=== PATIENT | male | born 1965 | race Caucasian/White ===

== ENCOUNTER 2022-10-17 15:00 | Outpatient (RCR) | payer BC, SELFPAY | END 2022-11-06 07:30 | disposition home or self-care (01) | LOC: PT 15:00 | PROVIDERS: Visit Provider Orthopaedic Surgery | DX: M17.12 Unilateral primary osteoarthritis, left knee (principal); R26.9 Unspecified abnormalities of gait and mobility; Z96.652 Presence of left artificial knee joint | CPT/HCPCS: 97010; 97014; 97110; 97140; 97163; 97164; 97530; G0283 ==

== ENCOUNTER 2023-07-03 15:00 | Outpatient (RCR) | payer BC, SELFPAY ==
--- NOTE | 2023-06-04 09:17 | HMH.PTOPEV ---
PT Outpatient Evaluation Rehab PT Outpatient Evaluation Start: 06/04/23 08:11 Freq: Status: Active Protocol: Document 06/04/23 08:11 PDESEROUX (Rec: 06/04/23 09:16 [email or web address] [id number]) E-signed By Shaun Thomas, PT Outpatient Therapy Subjective History Subjective History Pt. is a 57 year old male who presents to [facility] Outpatient Physical Therapy Services in [place] for the initial evaluation this date(06/04/23) w/ c/o constant and acute RLE knee post-surgical P!, edema, and numbness S/P RLE TKA on 05/29/23. Pt. vocalizes increased numbness to anterior and lateral portion of RLE knee post-surgery. Pt. reports having a knot-like sensation over lateral distal portion of thigh post-surgery. Pt. reports P! and symptoms w / improve some w/ ambulation , resting, and icing. Pt. reports icing and elevation RLE knee several times throughout the day for about an hour. Pt. reports symptoms worsen w/ prolonged sitting. Pt. vocalizes contacting Surgeon's office today() on return date. Current medications include Oxycodone, Lisinopril, Aspirin. PMH includes Hypertension, Hyperlipidemia, S/P LLE TKA. New diagnosis of cancer in past 12 No months? Chief Complaint Pain,Stiff,Swelling,Gives out/ Unstable,Paresthesia,Weakness Symptom Type Ache,Sharp,Dull,Burning, Numbness,Shooting Symptoms Relieved By Rest/Positioning,Ice, Prescription Meds,Activity, Elevation Symptoms Aggravated By Sitting,Standing,Bending/ Stooping,Physical Activity, Twisting,Walking Prior Functional Limitations None Current Functional Limitations Housework,Dressing,Standing, Sitting,Squatting,Recreation Activity,Walking,Bending/ Stooping Symptom Description Constant and Continuous, Activity Dependent Level of pain today (0-10) 8 Pain scale - at its best (0-10) 4 Pain scale - at its worst (0-10) 9 Hip/Knee Eval Gait Observation General Gait Pattern Observation Antalgic Gait,Wide Based Gait, Decrease Weight Bear (R), Decrease Stride Lngth (L) Assistive Device Assistive Devices Rolling / Wheeled Walker Palpation Tenderness right Knee Palpation Finding Tenderness,Spasm Knee Palpation Overall Comment grade 4 +TTP medial/lateral jt . line, IT band, distal quadriceps, patella MMT Hip Flexion Strength Grade 3 Fair Hip Abduction Strength Grade 3+ Fair+ Hip Adduction Strength Grade 3+ Fair+ Hip Extension Strength Grade 4- Good- Gluteus Robert Strength Grade 4- Good- Hip External Rotation Strength Grade 3+ Fair+ Hip Internal Rotation Strength Grade 3+ Fair+ Knee Extension Strength Grade 3+ Fair+ Knee Flexion Strength Grade 3+ Fair+ Knee Extensors Muscle Tone Description Severe Hypertonicity Knee Flexors Muscle Tone Description Severe Hypertonicity Hip Extensors Muscle Tone Description Severe Hypertonicity Hip Flexors Muscle Tone Description Severe Hypertonicity ROM Knee Extension Active Range of Motion ( +18 degrees) Knee Extension Passive Range of Motion ( +15 degrees) Knee Flexion Active Range of Motion ( 90 degrees) Knee Flexion Passive Range of Motion ( 93 degrees) Knee ROM Limitations Soft Tissue Tightness,Muscle Weakness,Muscle Tone,Pain Effusion joint effusion knee exam standard right 5cm Proximal Circumference Measure (cm) 57 5cm Distal Circumference Measure (cm) 44 Outpatient Therapy Assessment Impairments Problems/Impairmments Palpation Tenderness,Impaired Range of Motion,Impaired Strength,Impaired Endurance, Impaired Transfers,Impaired Gait Pattern,Impaired Walking, Impaired Standing,Impaired Dressing,Impaired Household Care,Impaired Incline Stepping ,Impaired Stepping on Uneven Surface,Impaired Squatting, Impaired Bending,Increased Edema,Subjective C/O Pain, Impaired Self Care/Self Management Prognosis Rehab Potential Good Comment w/ HEP compliancy Clinical Impression Consistent with Diagnosis Yes Consistent with S/P RLE TKA Short Term Goals Number of Weeks 2 Decreased Palpation Tenderness Yes: grade 1-2 +TTP to TTP assessment above Decrease Subjective C/O Pain Yes: worse:11/15 Patient to be Ind w/ HEP Yes Usp Goals Number of Weeks 4-6 Decreased Palpation Tenderness Yes: grade 1 +TTP to TTP assessment above Increase Range of Motion Yes: 0-120 Increase Strength Yes: 4+ to 5/5 RLE knee/hip MMT scores grossly Improve Gait Pattern without Assistive Yes Device Increase Ability to Walk Yes Increase Ability to Stand Yes Increase Ability to Drive/Ride in Car Yes: Pt. will be able to ride/ drive in the car w/o difficulty Improve Ability to Dress Self Yes: Pt. will be able to don/ doff socks and shoes w/o difficulty Improve Ability For Household Care Yes Improve LEFI Score Yes Decrease Subjective C/O Pain Yes: worse:1-08/18 Improve Self Care/Self Management Yes Patient to be Ind w/ Advanced HEP Yes Outpatient Therapy Plan of Care Treatment Plan May Include Therapeutic Exercise Including Home Yes Exercise Program Manual Therapy Techniques Yes Neuromuscular Re-education Yes Therapeutic Activities to Return to Yes Previous Functional/Work Level Gait Training Yes ADL/Self Care Education Yes Thermal Modalities Yes Electrical Stimulation Yes Ultrasound/Phonophoresis Yes Iontophoresis Yes Vasopneumatic Compression Pump Yes Massage Yes Eval/Re-Eval Yes Frequency Times per week 2 Duration Number of Weeks 4-6 Addendums This patient is a candidate for social No or vocational rehab? Patient/Guardian verbally acknowledges Yes understanding of treatment program and consents to further treatment? Patient/Guardian verbally acknowledges Yes understanding of diagnosis, prognosis and goals for treatment? Eval Complexity PT Charges 13567 - Low Complexity Shoulder/Elbow Eval Shoulder Objective Measurements Elbow Objective Measurements PHYSICIAN CERTIFICATION: I certify the specified therapy services for Tadeo Mayra Huong are required, authorized, and reviewed every 30 days.
== END 2023-08-14 17:50 | disposition home or self-care (01) ==
LOC: PT 15:00
PROVIDERS: Visit Provider Orthopaedic Surgery
DX: M17.11 Unilateral primary osteoarthritis, right knee (principal); Z96.651 Presence of right artificial knee joint
CPT/HCPCS: 97010; 97014; 97110; 97140; 97163; 97164; 97530; G0283

== ENCOUNTER 2023-07-27 08:38 | Outpatient (CLI) | payer BC, SELFPAY ==
--- NOTE | 2023-07-27 08:41 | XR_ITS ---
FINAL REPORT CLINICAL HISTORY: right knee pain FINDINGS: Right knee Three views were obtained. There is no acute fracture or dislocation. Patient is status post right knee arthroplasty. Moderate joint effusion is identified. There is soft tissue swelling. IMPRESSION: Moderate joint effusion with soft tissue swelling. Reviewed, Interpreted and Dictated by Justin Wagoner III, MD Transcribed by Tianna Reynoso Authenticated and [facility]
== END 2023-07-27 23:59 ==
LOC: RAD 08:39
PROVIDERS: PCP Family Medicine; Visit Provider Orthopaedic Surgery
DX: M25.561 Pain in right knee (principal)
CPT/HCPCS: 73562

== ENCOUNTER → 2024-07-16 07:36 | Outpatient (CLI) | payer OTHER, SELFPAY | LOC: SL 07:41 | PROVIDERS: PCP Family Medicine; Visit Provider Family Medicine | DX: G47.33 Obstructive sleep apnea (adult) (pediatric) (principal); G47.36 Sleep related hypoventilation in conditions classified elsewhere | CPT/HCPCS: G0399 ==